=== PATIENT | female | born 2005 | race Caucasian/White ===

== ENCOUNTER 2024-01-31 17:18 | Inpatient (IN) ==
[2024-01-31 18:21] LABS: ABS Eosinophils 0.1 10^3/uL (0.0-0.5); ABS Lymphocytes 2.2 10^3/uL (1.0-4.8); ABS Monocytes 0.5 10^3/uL (0.0-0.9); ABS Neutrophils 2.8 10^3/uL (1.5-7.6); Eosinophil % 2.6 %; Hematocrit 37.5 % (35-45); Hemoglobin 12.9 g/dL (11.5-14.3); Mean Corpuscular Hemoglobin 30.8 pg (27-33); Mean Corpuscular Hgb Conc 34.4 g/dL (31-36); Mean Corpuscular Volume 89.4 fL (80-97); Platelet Count 190 10^3/uL (150-450); Red Cell Distribution Width 13.4 % (12-17); White Blood Count 5.7 10^3/uL (3.8-11.8)
[2024-01-31] MEDS: Haloperidol 5 mg/ml SDV IV/IM 5 MG/ML AMP IM ONE (18:21)
[2024-01-31 18:29] LABS: Urine Appearance Clear; Urine Bilirubin Negative (Negative); Urine Blood Negative (Negative); Urine Color Colorless; Urine Glucose Negative (Negative); Urine Ketones Negative (Negative); Urine Nitrite Negative (Negative); Urine Protein Negative (Negative); Urine Specific Gravity 1.006 (1.002-1.030); Urine Urobilinogen Negative (Negative); Urine pH 6.5 (5.0-8.0)
[2024-01-31] MEDS ORDERED: Midazolam 5 mg/ml concentrated 5 mg/ml 1 ml VIAL ONE ×2 (18:38→19:05)
[2024-01-31 18:41] LABS: Urine Benzodiazepine Screen None Detected (None Detect); Urine Cannabinoids Screen Presumptive Positive (None Detect); Urine Opiates Screen None Detected (None Detect)
[2024-01-31 18:46] LABS: ALT 19 U/L (7-52); AST 24 U/L (13-39); Acetaminophen < 15 mcg/mL; Albumin 4.6 g/dL (3.2-5.2); Albumin/Globulin Ratio 2.1 (1-3); Alcohol, S < 13 mg/dL (<13); Alkaline Phosphatase 58 U/L (35-149); Anion Gap 9 mmol/L (2-16); Blood Urea Nitrogen 7 mg/dL (6-24); CO2 Carbon Dioxide 28 mmol/L (22-32); Calcium 9.4 mg/dL (8.6-10.3); Chloride 104 mmol/L (101-111); Creatinine, Serum 0.79 mg/dL (0.51-0.95); Globulin 2.2 g/dL (2-4); Glucose 66 mg/dL (70-100); Salicylate < 2.50 mg/dL (<30); Sodium 141 mmol/L (135-145); Total Bilirubin 0.4 mg/dL (0.2-1.0); Total Protein 6.8 g/dL (6.4-8.9); eGFR CKD-EPI 109.8 (>60)
[2024-01-31] MEDS: Midazolam 2 mg/2 ml VIAL 1 mg/ml 2 ml VIAL (2 mg) IM ONE (18:46)
[2024-01-31 18:50] LABS: HCG Pregnancy < 0.60 mIU/mL
[2024-01-31 18:58] LABS: TSH Ultra Thyroid Stim Horm 1.53 mcIU/mL (0.34-5.60)
[2024-01-31] MEDS ORDERED: Al Hydrox/Mg Hydrox/Simet LIQ 30 ML UDC PO PRN (21:57)
[2024-02-01] MEDS: OLANZapine IM (NF) 10 MG VIAL IM ONE (07:17)
[2024-02-01] MEDS: Midazolam 2 mg/2 ml VIAL 1 mg/ml 2 ml VIAL (2 mg) IM ONE (07:17)
[2024-02-01] MEDS: Vitamin THERAPEUTIC TAB PO SCH (08:36)
[2024-02-01] MEDS: Nicotine GUM 2MG FRUIT FLAVOR PO PRN (08:37)
[2024-02-08] MEDS: risperiDONE ER SUBCUT (NF) 100 MG/0.28 ML SYRINGE SUBCUT ONE (12:54)
[2024-02-09 10:11] VITALS: BP 118/66
== END 2024-02-09 12:20 | disposition home or self-care (01) | DRG 753 ==
LOC: ED 17:18 → EDHOLD 21:42 → BSU 23:28
PROVIDERS: ADMIT Psychiatry & Neurology Psychiatry; ATTEND Student in an Organized Health Care Education/Training Program

== ENCOUNTER 2024-02-23 15:50 | Inpatient (IN) ==
[2024-02-23 16:54] LABS: Urine Appearance Turbid; Urine Bilirubin Negative (Negative); Urine Blood Negative (Negative); Urine Color Colorless; Urine Glucose Negative (Negative); Urine Ketones Negative (Negative); Urine Nitrite Negative (Negative); Urine Protein Negative (Negative); Urine Specific Gravity 1.005 (1.002-1.030); Urine Urobilinogen Negative (Negative)
[2024-02-23 17:00] LABS: ABS Basophils 0.1 10^3/uL (0.0-0.1); ABS Eosinophils 0.1 10^3/uL (0.0-0.5); ABS Lymphocytes 1.4 10^3/uL (1.0-4.8); ABS Monocytes 0.6 10^3/uL (0.0-0.9); ABS Neutrophils 6.7 10^3/uL (1.5-7.6); ABS Nucleated RBC 0.01 10^3/ul; Eosinophil % 0.7 %; Hematocrit 40.3 % (35-45); Hemoglobin 13.6 g/dL (11.5-14.3); Lymphocyte % 15.9 %; Mean Corpuscular Hemoglobin 30.6 pg (27-33); Mean Corpuscular Hgb Conc 33.8 g/dL (31-36); Mean Corpuscular Volume 90.7 fL (80-97); Mean Platelet Volume 7.2 fL (7.5-11.2); Nucleated Red Blood Cells % 0.1 %/100WBC (0.0-0.8); Platelet Count 297 10^3/uL (150-450); Red Blood Count 4.44 10^6/uL (3.63-4.92); Red Cell Distribution Width 13.5 % (12-17); White Blood Count 8.9 10^3/uL (3.8-11.8)
[2024-02-23 17:07] LABS: Urine Benzodiazepine Screen None Detected (None Detect); Urine Cannabinoids Screen Presumptive Positive (None Detect); Urine Opiates Screen None Detected (None Detect)
[2024-02-23 17:15] LABS: Urine Bacteria 2+ /HPF (Absent); Urine Red Blood Cell Trace(0-2/hpf) /HPF (0-Trace); Urine Squamous Epithelial Cell Present /HPF (Absent); Urine White Blood Cell 1+(6-10/hpf) /HPF (0-Trace)
[2024-02-23 17:24] LABS: ALT 16 U/L (7-52); AST 20 U/L (13-39); Acetaminophen < 15 mcg/mL; Albumin 4.8 g/dL (3.2-5.2); Albumin/Globulin Ratio 1.9 (1-3); Alcohol, S < 13 mg/dL (<13); Alkaline Phosphatase 63 U/L (35-149); Anion Gap 6 mmol/L (2-16); Blood Urea Nitrogen 8 mg/dL (6-24); CO2 Carbon Dioxide 29 mmol/L (22-32); Calcium 10.6 mg/dL (8.6-10.3); Chloride 102 mmol/L (101-111); Creatinine, Serum 0.75 mg/dL (0.51-0.95); Globulin 2.5 g/dL (2-4); Glucose 105 mg/dL (70-100); Lithium 1.03 mmol/L (0.6-1.2); Potassium 3.9 mmol/L (3.5-5.0); Salicylate < 2.50 mg/dL (<30); Sodium 137 mmol/L (135-145); Total Bilirubin 0.5 mg/dL (0.2-1.0); Total Protein 7.3 g/dL (6.4-8.9); eGFR CKD-EPI 116.1 (>60)
[2024-02-23 17:29] LABS: HCG Pregnancy < 0.60 mIU/mL
[2024-02-23 17:38] LABS: TSH Ultra Thyroid Stim Horm 2.23 mcIU/mL (0.34-5.60)
[2024-02-23] MEDS ORDERED: Al Hydrox/Mg Hydrox/Simet LIQ 30 ML UDC PO PRN (19:49)
[2024-02-23] MEDS: Nicotine GUM 2MG FRUIT FLAVOR PO PRN (20:52)
[2024-02-23] MEDS: Nitrofurantoin (monohydrate/macrocrystals) 100 mg CAP PO ONE (21:31)
[2024-02-24] MEDS: Amphetamine MIXED SALT 10mgTAB PO SCH (08:26)
[2024-02-24] MEDS: Vitamin THERAPEUTIC TAB PO SCH (08:27)
[2024-02-24] MEDS: Nicotine PATCH 14 MG/24 HR PATCH TRANSDERM SCH (08:28)
[2024-02-24] MEDS ORDERED: OLANZapine 5 mg TAB *ODT PO PRN (13:36)
[2024-02-24] MEDS: Ondansetron ODT 4 mg TAB 4 MG TAB PO ONE (16:21)
[2024-02-25 08:33] LABS: HDL Cholesterol 73.9 mg/dL
[2024-02-26] MEDS: Benzocaine/Menthol LOZ MT PRN (18:49)
[2024-02-28] MEDS: Benzocaine/Menthol LOZ MT PRN (07:57)
[2024-03-07] MEDS: RISPERIDONE SUBCUT ONE (13:09)
[2024-03-10 09:20] VITALS: BP 97/67
== END 2024-03-10 10:45 | disposition home or self-care (01) | DRG 753 ==
LOC: ED 15:50 → BSU 20:04 → EDHOLD 20:25 → BSU 20:30
PROVIDERS: ADMIT Psychiatry & Neurology Psychiatry; ATTEND Psychiatry & Neurology Psychiatry